=== PATIENT | female | born 1980 | race Native Hawaiian/Other Pacific Islander ===

== ENCOUNTER 2018-08-02 08:43 | Emergency (ER) | payer OTHER ==
[2018-08-02] MEDS ORDERED: Betamethasone Soluspan 30 mg/5mL Inj Susp IM ONE (09:04)
[2018-08-02] MEDS ORDERED: Lactated Ringer's 1,000 ML IV ONE (10:11)
--- NOTE | 2018-08-02 11:15 | OBADHP ---
Datetime: 08/02/2018 10:39 IP Chief Complaint Other: Low SREEDHAR Admit Comment, IP Provider: 37 y/o , 32.5 weeks, IVF sent to [facility] due t o SREEDHAR of 7.5 this morning for betamethazone injection. Patient is high risk and follow up w audra M. Risk Factors: AMA, IVF, H/O laproscopic surgery, Uncreased free betah HCG and SGA. : Dr. Vázquez M: Dr. Saxena PMHx: Protein S deficiency PSHx: Laproscopic surgery Allergies: NKDA, Dust and mold(Hives) Medications: Low dose ASA, PNVs F/H Non contributory Social Hx: Denies EtOH, smoking drug use Physical Exam: Gen: NAD Chest: RRR, S1S2 present Lungs: CTAB Abdomen: Soft NT Ext: No pedal edema A/P: 37 y/o , 32.5 weeks, IVF sent to [facility] due to SREEDHAR of 7.5 this mor hollie for betamethazone injection. NST reactive Betamothazone 12 mg IM once today @ 10AM LR 1L @ 999ml/hr Patient to F/U for US tomorrow AM at 7:30 Patient to return to [facility] for 2nd dose of Betamethazone tomorrow at 9 am. I have evaluated the patient independently and I agree with the above Pelvic Type - PN: Not Done Extremities - PN: Normal Abdomen - PN: Normal Back - PN: Normal Breast - PN: Not Done Lungs - PN: Normal Heart - PN: Normal Thyroid - PN: Normal Neurologic - PN: Normal HEENT - PN: Normal General - PN: Normal Presentation-Admit: Breech FHR - Baseline A Provider: 140 Comments, ACOG Physical Exam: Physical Exam: Gen: NAD Chest: RRR, S1S2 present Lungs: CTAB Abdomen: Soft NT Ext: No pedal edema Vital Signs Provider: Reviewed; Within Normal Limits IP Chief Complaint: Other NICHD Variability Prov Fetus A: Moderate 6-25bpm NICHD Accel Fetus A IP Provider: [id number] (Annotations: Data stored by CPN on behalf of user) FHR Category Provider Fetus A: Category I (Annotations: Data stored by CPN on behalf of user) NICHD Decel Fetus A IP Provider: None Genitourinary Exam: Not Done DTRs - PN: Normal EGA AdmitDate IP: 32.5 IP Adm Impression: , intrauterine ; No Active Labor IP Admit Plan: Observation/Evaluation; Discharge home
--- NOTE | 2018-08-02 11:42 | OBDCSUM ---
Datetime: 08/02/2018 11:03 Discharged to, Provider: Home Follow up at, Provider: DR Vázquez on 08/06/18. Disch Instr Activity: Normal activity; May be up to bathroom; May be up for meals; May Shower Disch Instr Diet: Regular Discharge Time: 08/02/2018 11:40 Follow up in weeks, Provider: Next Scan 0730AM at Dr Aaron Disch Referrals: None Discharge Diagnosis Prov Other: low panda
[2018-08-02 12:48] VITALS: BMI 23.8
[2018-08-02 18:11] VITALS: BP 124/71; PULSE 102; RESP 16; TEMP 98.1
== END 2018-08-02 11:50 | disposition home or self-care (01) ==
LOC: H.EROB2 08:43 → H.L&D 08:51 → H.EROB2 11:50
DX: O41.03X0 Oligohydramnios, third trimester, not applicable or unspecified (principal); Z3A.32 32 weeks gestation of pregnancy; Z23 Encounter for immunization
CPT/HCPCS: 96360; 96372; 99281; J0702; J7120

== ENCOUNTER 2018-08-03 09:29 | Emergency (ER) | payer OTHER ==
[2018-08-02 12:48] VITALS: BMI 23.8
[2018-08-03] MEDS ORDERED: Betamethasone Soluspan 30 mg/5mL Inj Susp IM ONE (09:45)
--- NOTE | 2018-08-03 10:42 | OBHP ---
Datetime: 08/03/2018 09:50 IP Chief Complaint Other: Betamethasone IP Admit Plan: Discharge home Admit Comment, IP Provider: HPI: Adelina is a 37 year old G1 here today for her second betamethasone shot. has been complicated by AMA, IVF, IUGR as well as a history of maternal protein S def iciency. Per [facility] recommendations she was to receive steroids. : Dr. Vázquez PMHx: Protein S deficiency PSHx: Laproscopic surgery Allergies: NKDA Medications: Low dose ASA, PNVs F/H Non contributory Social Hx: Denies EtOH, smoking drug use Physical Exam Gen: NAD Chest: Regular rate Lungs: Nonlabored respirations Abdomen: Soft NT Ext: No pedal edema A/P: 37 y/o , 32.5 weeks here for second betamethazone injection. - 12mg betamethasone - NST reactive - Discharge to home - Routine follow-up Laura Maharaj MD OB Fellow OB Hospitalist Addendum: 37 yo G1 at 32+5 wks, conceived w/ IVF, IUGR, low SREEDHAR, w/ protein S defi ciency, sent from [facility] for BMZ yesterday, here for second dose. FHT reactive. Pt to be discharged ho me w/ precautions afer receiving her shot. Pt has a f/u appoint. w/ Dr. Vázquez on Mon., 08/06/2018. (E S) IP Fetus A Comments: Reactive NST FHR - Baseline A Provider: 140 Gestation - Est Wks by US: 32.6 Vital Signs Provider: Reviewed; Within Normal Limits NICHD Variability Prov Fetus A: Moderate 6-25bpm NICHD Accel Fetus A IP Provider: [id number] NICHD Decel Fetus A IP Provider: None Datetime: 08/02/2018 10:39 IP Adm Impression: , intrauterine ; No Active Labor Pelvic Type - PN: Not Done Extremities - PN: Normal Abdomen - PN: Normal Back - PN: Normal Breast - PN: Not Done Lungs - PN: Normal Heart - PN: Normal Thyroid - PN: Normal Neurologic - PN: Normal HEENT - PN: Normal General - PN: Normal Presentation-Admit: Breech Comments, ACOG Physical Exam: Physical Exam: Gen: NAD Chest: RRR, S1S2 present Lungs: CTAB Abdomen: Soft NT Ext: No pedal edema EGA AdmitDate IP: 32.5 IP Chief Complaint: Other FHR Category Provider Fetus A: Category I (Annotations: Data stored by CPN on behalf of user) Genitourinary Exam: Not Done DTRs - PN: Normal
[2018-08-04 02:57] VITALS: BP 110/60; PULSE 104; RESP 18; TEMP 98.3
== END 2018-08-03 10:54 | disposition home or self-care (01) ==
LOC: H.EROB2 09:29 → H.EROB 09:33 → H.EROB2 10:54
DX: O09.93 Supervision of high risk pregnancy, unspecified, third trimester (principal); Z3A.32 32 weeks gestation of pregnancy
CPT/HCPCS: 96372; 99281; J0702